=== PATIENT | male | born 1965 | race Caucasian/White ===

== ENCOUNTER 2016-10-24 12:51 | Inpatient (IN) | payer OTHER ==
[2016-10-24] MEDS ORDERED: OXYCODONE/APAP 5/325MG COMBO TABLET PO ONE (14:02)
[2016-10-24] MEDS ORDERED: OXYCODONE/APAP 5/325MG COMBO TABLET ONE (14:08)
--- NOTE | 2016-10-24 14:12 | PDOC ---
[id number] BACK/ RIB PAIN Time Seen by Provider: 10/24/16 13:23 History Source: Patient Exam Limitations: No Limitations - History of Present Illness Initial Comments: 10/24/16 14:09 51 yr male states he was walking up the steps this am and fell injuring left rib area left knee. Pt denies LOC no head trauma no headache. 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 Pt has pain to the left rib area under armpit and pain to his mid back left side. no shortness of breath no chest pain. 10/24/16 16:18 10/24/16 16:24 Past History - Past Medical History Allergies/Adverse Reactions: Allergies Allergy/AdvReac Type Severity Reaction Status Date / Time No Known Allergies Allergy Verified 10/24/16 13:00 Home Medications: Ambulatory Orders NK [No Known Home Medication] 06/21/15 HTN: Yes Other medical history: PSORIASIS - Family Disease History Comment:: 10/24/16 14:10 none relevant - Psycho/Social/Smoking Cessation Hx Anxiety: No Suicidal Ideation: No Smoking History: Never smoked Hx Alcohol Use: Yes (SOCIAL) Drug/Substance Use Hx: No Substance Use Type: None Trauma Specific PMHX - Complaint Specific PMHX Arthritis: No Back Injury: No Neck Injury: No Hx Sacro Iliac Joint Dysfunction: No Review of Systems - Review of Systems Able to Perform ROS?: Yes Is the patient limited Czech proficient: No Constitutional: No: Symptoms Reported HEENTM: No: Symptoms Reported Respiratory: No: Symptoms reported Cardiac (ROS): No: Symptoms Reported ABD/GI: No: Symptoms Reported : No: Symptoms Reported Musculoskeletal: Yes: See HPI Integumentary: No: Symptoms Reported Neurological: No: Symptoms reported *Physical Exam - Vital Signs Last Vital Signs Temp Pulse Resp BP Pulse Ox 98.2 F 125 H 20 170/103 97 10/24/16 12:55 10/24/16 12:55 10/24/16 12:55 10/24/16 12:55 10/24/16 12:55 - Physical Exam General Appearance: Yes: Nourished, Appropriately Dressed HEENT: positive: EOMI, DEVONTE Neck: negative: Tender Respiratory/Chest: positive: Chest Tender (left rib area under axila TTP), Lungs Clear, Normal Breath Sounds Cardiovascular: positive: Regular Rhythm, Regular Rate Gastrointestinal/Abdominal: positive: Normal Bowel Sounds, Soft Lymphatic: negative: Adenopathy Musculoskeletal: positive: Normal Inspection Extremity: positive: Normal Capillary Refill, Normal Inspection, Other ( bruising noted left upper arm, left knee no bony tenderness ) ED Treatment Course - LABORATORY CBC & Chemistry Diagram: 10/24/16 15:00 10/24/16 15:00 - RADIOLOGY Radiology Studies Ordered: Category Date Time Status CHEST PA & LAT [RAD] Stat Radiology 10/24/16 14:02 Ordered Medical Decision Making - Medical Decision Making 10/24/16 14:12 cc: slip and fall on the steps injured left rib area no head trauma will xray to r/o fracture percocet for pain 10/24/16 14:20 10/24/16 14:35 xray findings discussed with , will move pt to main ER for further care. signed out to Krystle MAGANA. charge nurse Tiarra Manuel aware of pt to come to main ER. 10/24/16 14:37 *DC/Admit/Observation/Transfer Diagnosis at time of Disposition: Pleural effusion Ribs, multiple fractures Qualifiers: Encounter type: initial encounter Fracture type: closed Laterality: left Qualified Code(s): S22.42XA - Multiple fractures of ribs, left side, initial encounter for closed fracture - Referrals Referrals: Zack Call MD [Primary Care Provider] -
[2016-10-24 15:22] LABS: MCH 33.1 pg (25.7-33.7); MCHC 35.1 g/dl (32.0-35.9); MEAN CELL VOLUME 94.1 fl (80-96); MEAN PLT VOLUME 9.6 fl (7.5-11.1); PLATELET COUNT 127 K/MM3 (134-434); RDW 13.8 % (11.9-15.9); WHITE BLOOD COUNT 11.5 K/mm3 (4.0-10.0)
[2016-10-24 15:33] LABS: ALK PHOS 170 U/L (45-117); ANION GAP 12 (8-16); BILIRUBIN,TOTAL 1.9 mg/dL (0.2-1.0); CALCIUM 9.1 mg/dL (8.5-10.1); CO2 24 mmol/L (21-32); CREATININE 0.8 mg/dL (0.7-1.3); SGOT/AST 92 U/L (15-37); SGPT/ALT 99 U/L (12-78); TOT PROT 8.2 g/dl (6.4-8.2)
[2016-10-24 15:39] LABS: GLUCOSE,RANDOM 373 mg/dL (74-106)
--- NOTE | 2016-10-24 16:09 | PDOC ---
History of Present Illness - General Chief Complaint: Pain Stated Complaint: BACK/ RIB PAIN Time Seen by Provider: 10/24/16 13:23 History Source: Patient Exam Limitations: No Limitations - History of Present Illness Initial Comments: CHIEF COMPLAINT: 51 y/o afebrile male with no significant PMH c/o left sided rib pain and SOB since fall today. HISTORY OF PRESENT ILLNESS: The patient fell down his steps this morning and landed with his left side/ribs on the railing. He states he took aleve for pain with little relief. He states it hurts if he takes a deep breath. He was initially assessed in [facility] and was found to have rib fractures of 6th/7th ribs with atelectasis of left lower chest with pleural effusion. He was sent to the [facility] for further work up to r/o splenic lac. Vital signs on arrival are notable for pulse of 125. REVIEW OF SYSTEMS: GENERAL/CONSTITUTIONAL: No fever/chills. No weakness. No weight change. HEAD, EYES, EARS, NOSE AND THROAT: No change in vision. No ear pain or discharge. No sore throat. CARDIOVASCULAR: +pain with deep inspiration. +left chest wall pain. RESPIRATORY: No cough, wheezing, or hemoptysis. GASTROINTESTINAL: No abd pain, nausea, vomiting, diarrhea. +left side/flank pain. GENITOURINARY: No dysuria, frequency, or change in urination. MUSCULOSKELETAL: No joint or muscle swelling or pain. No neck or back pain. SKIN: No rash or easy bruising. NEUROLOGIC: No headache, vertigo, loss of consciousness, or loss of sensation. PHYSICAL EXAM: GENERAL: The patient is awake, alert, and fully oriented, in moderate discomfort. HEAD: Normal with no signs of trauma. ENT: Pupils equal, round and reactive to light, extraocular movements intact, sclera anicteric, conjunctiva clear. Neck supple. LUNGS: Clear to auscultation bilaterally. Normal excursion. No respiratory distress or use of accessory muscles. CV: RRR, S1/S2, no MRG. Cap refill < 2 sec. ABDOMEN: Soft, non-distended, non-tender even to deep palpation, no hepatomegaly or splenomegaly, no masses. EXTREMITIES: Normal range of motion, no edema. NEUROLOGICAL: Normal speech, normal gait. CN II-XII grossly intact. SKIN: scattered ecchymosis and abrasions to left midaxillary chest and left flank. TTP of left ribs Past History - Past Medical History Allergies/Adverse Reactions: Allergies Allergy/AdvReac Type Severity Reaction Status Date / Time No Known Allergies Allergy Verified 10/24/16 13:00 Home Medications: Ambulatory Orders Metoprolol Succinate [Toprol Xl -] 25 mg PO BID 10/24/16 HTN: Yes Other medical history: PSORIASIS - Psycho/Social/Smoking Cessation Hx Anxiety: No Suicidal Ideation: No Smoking History: Never smoked Hx Alcohol Use: Yes (SOCIAL) Drug/Substance Use Hx: No Substance Use Type: None Trauma Specific PMHX - Complaint Specific PMHX Arthritis: No Back Injury: No Neck Injury: No Hx Sacro Iliac Joint Dysfunction: No Review of Systems - Review of Systems Is the patient limited Montenegrin proficient: No *Physical Exam - Vital Signs Last Vital Signs Temp Pulse Resp BP Pulse Ox 98.2 F 125 H 20 170/103 97 10/24/16 12:55 10/24/16 12:55 10/24/16 12:55 10/24/16 12:55 10/24/16 12:55 ED Treatment Course - LABORATORY CBC & Chemistry Diagram: 10/25/16 11:20 10/25/16 11:20 - ADDITIONAL ORDERS Additional order review: Laboratory Results 10/24/16 15:00 Sodium 135 L Potassium 3.8 Chloride 99 Carbon Dioxide 24 Anion Gap 12 BUN 15 Creatinine 0.8 Creat Clearance w eGFR > 60 Random Glucose 373 H* Calcium 9.1 Total Bilirubin 1.9 H AST 92 H ALT 99 H Alkaline Phosphatase 170 H Total Protein 8.2 Albumin 4.0 10/24/16 15:00 RBC 5.23 MCV 94.1 MCHC 35.1 RDW 13.8 MPV 9.6 - Medications Given in the ED: ED Medications Discontinued Medications Generic Name Dose Route Start Last Admin Trade Name Freq PRN Reason Stop Dose Admin Oxycodone/Acetaminophen 1 combo 10/24/16 14:02 10/24/16 14:10 Percocet 5/325 - PO 10/24/16 14:03 1 combo ONCE ONE Administration Medical Decision Making - Medical Decision Making A/P: 51 y/o male with trauma to left chest today. 6th and 7th rib fractures. Labs ok. Will send for CT scan of chest and abd/pelvis to r/o splenic lac. I am signing this patient out to my colleague: JEANA Millard In brief, this patient is being seen in the ED for a chief complaint of: left sided rib pain and SOB I have completed the initial assessment interview note and have ordered: labs, percocet, CTA chest, abd/pelvis CT I have reviewed the following results: labs Pending results are: CT scans Please call the PCP: Zack Call Plan for disposition is as follows: Pending *DC/Admit/Observation/Transfer Diagnosis at time of Disposition: Pleural effusion Ribs, multiple fractures Qualifiers: Encounter type: initial encounter Fracture type: closed Laterality: left Qualified Code(s): S22.42XA - Multiple fractures of ribs, left side, initial encounter for closed fracture - Referrals - Patient Instructions - Post Discharge Activity
--- NOTE | 2016-10-24 19:24 | PDOC ---
*Physical Exam - Vital Signs Last Vital Signs Temp Pulse Resp BP Pulse Ox 98.2 F 125 H 20 170/103 97 10/24/16 12:55 10/24/16 12:55 10/24/16 12:55 10/24/16 12:55 10/24/16 12:55 - Physical Exam Comments: 10/24/16 19:23 Sign-out received from outgoing ER provider Edna. Pt interviewed and examined. Ancillary studies reviewed. Awaiting CT results to r/o splenic lac. 10/24/16 21:06 CT results: Fractures to ribs 3-8 of L side along posterolateral and lateral borders. Associated mild subleural thickening in those regions consistent with edema. A small amount of left-sided pleural fluid is noted. Discussed case with ER attending Jesus, will admit for multiple rib fractures. Discussed case with admitting MD Frank, who accepts patient to inpatient services. Patient currently c/o pain. -1mg Dilaudid IVPB ED Treatment Course - LABORATORY CBC & Chemistry Diagram: 10/24/16 15:00 10/24/16 15:00 - ADDITIONAL ORDERS Additional order review: Laboratory Results 10/24/16 15:00 Sodium 135 L Potassium 3.8 Chloride 99 Carbon Dioxide 24 Anion Gap 12 BUN 15 Creatinine 0.8 Creat Clearance w eGFR > 60 Random Glucose 373 H* Calcium 9.1 Total Bilirubin 1.9 H AST 92 H ALT 99 H Alkaline Phosphatase 170 H Total Protein 8.2 Albumin 4.0 10/24/16 15:00 RBC 5.23 MCV 94.1 MCHC 35.1 RDW 13.8 MPV 9.6 - Medications Given in the ED: ED Medications Discontinued Medications Generic Name Dose Route Start Last Admin Trade Name Freq PRN Reason Stop Dose Admin Oxycodone/Acetaminophen 1 combo 10/24/16 14:02 10/24/16 14:10 Percocet 5/325 - PO 10/24/16 14:03 1 combo ONCE ONE Administration *DC/Admit/Observation/Transfer Diagnosis at time of Disposition: Pleural effusion Ribs, multiple fractures Qualifiers: Encounter type: initial encounter Fracture type: closed Laterality: left Qualified Code(s): S22.42XA - Multiple fractures of ribs, left side, initial encounter for closed fracture - Discharge Dispostion Admit: Yes - Referrals Referrals: aZck Call MD [Primary Care Provider] - - Patient Instructions - Post Discharge Activity
[2016-10-24] MEDS ORDERED: HYDROmorphone HCL CARPU-JECT 1 MG/1 ML DISP.SYRIN IVPUSH ONE (21:10)
[2016-10-24] MEDS ORDERED: HYDROmorphone HCL CARPU-JECT 1 MG/1 ML DISP.SYRIN ONE (21:12)
[2016-10-24] MEDS ORDERED: METOPROLOL SUCCINATE 50 MG TAB.SR.24H (FP) ONE (22:29)
[2016-10-24] MEDS ORDERED: METOPROLOL SUCCINATE 25 MG TAB.SR.24H (FP) PO ONE (22:30)
[2016-10-25] MEDS ORDERED: morphine CARPU-JECT 4 MG/1 ML DISP.SYRIN ONE (02:40)
[2016-10-25] MEDS: morphine CARPU-JECT 4 MG/1 ML DISP.SYRIN IM PRN ×2 (02:47→10:23)
[2016-10-25 03:52] VITALS: BMI 23.9
[2016-10-25] MEDS: METOPROLOL SUCCINATE 25 MG TAB.SR.24H (FP) PO SCH ×3 (08:31→21:00)
--- NOTE | 2016-10-25 11:27 | PN ---
Progress Note (short form) - Note Progress Note: To whom it may concern, This is to inform you that Mr. Juju Patino 61 [address] [facility] on 10/24/16 with a significant rib injury. He is still in the hospital today 10/25/16 and his hospital duration is unknown at this time. Thank you, Moshe Potter MD
[2016-10-25 11:34] LABS: BASOPHIL 0.5 % (0-2.0); EOSINOPHIL 0.9 % (0-4.5); MCH 32.6 pg (25.7-33.7); MCHC 34.3 g/dl (32.0-35.9); MEAN CELL VOLUME 94.8 fl (80-96); MEAN PLT VOLUME 9.1 fl (7.5-11.1); NEUTROPHILS 76.6 % (42.8-82.8); PLATELET COUNT 109 K/MM3 (134-434); RDW 13.7 % (11.9-15.9); WHITE BLOOD COUNT 8.8 K/mm3 (4.0-10.0)
[2016-10-25 11:56] LABS: ALBUMIN 3.8 g/dl (3.4-5.0); ALK PHOS 164 U/L (45-117); ANION GAP 11 (8-16); BILIRUBIN,TOTAL 2.5 mg/dL (0.2-1.0); CALCIUM 9.4 mg/dL (8.5-10.1); CO2 27 mmol/L (21-32); CREATININE 0.8 mg/dL (0.7-1.3); GLUCOSE,RANDOM 291 mg/dL (74-106); SGOT/AST 56 U/L (15-37); SGPT/ALT 80 U/L (12-78); TOT PROT 8.2 g/dl (6.4-8.2)
--- NOTE | 2016-10-25 12:41 | CON.CARD ---
Consult Consult Specialty:: Cardiology Referred by:: Dr. Frank Reason for Consultation:: HTN - History of Present Illness Chief Complaint: Fall with rib pain History of Present Illness: 51 year old man with a history of HTN, HLD, DMII, admitted with a mechanical fall and rib fractures. asked to evaluate for HTN. Pt seen and examined today in [facility]. states he is feeling better. still has significant rib pain. no syncope , near syncope, dizziness, lightheadedness, chest pain, sob, palpitations, pnd, orthopnea, or LE edema. - History Source History Provided By: Patient, Medical Record Limitations to Obtaining History: No Limitations - Past Medical History Cardio/Vascular: Yes: HTN, Hyperlipdemia Endocrine: Yes: Diabetes Mellitus - Alcohol/Substance Use Hx Alcohol Use: Yes (SOCIAL) - Smoking History Smoking history: Never smoked - Social History ADL: Independent History of Recent Travel: No Home Medications - Allergies Allergies/Adverse Reactions: Allergies Allergy/AdvReac Type Severity Reaction Status Date / Time No Known Allergies Allergy Verified 10/24/16 13:00 - Home Medications Home Medications: Ambulatory Orders Metoprolol Succinate [Toprol Xl -] 25 mg PO BID 10/24/16 Family Disease History - Family Disease History Family History: Denies Review of Systems - Review of Systems Constitutional: denies: No Symptoms, Chills, Diaphoresis, Fever, Lethargy, Loss of Appetite, Malaise, Night Sweats, Unintentional Wgt. Loss, Weakness, Other Eyes: denies: No Symptoms, Blind Spots, Blurred Vision, Double Vision, Eye Pain , Floaters, Photophobia, Recent Change in Vision, Other HENT: denies: No Symptoms, Difficult Swallowing, Ear Discharge, Ear Pain, Epistaxis, Gingival Bleeding, Hearing Loss, Mouth Swelling, Nasal Congestion, Ocular Prosthesis, Throat Pain, Toothache, Ringing in Ears, Other Neck: denies: No Symptoms, Decreased ROM, Lumps, Pain on Movement, Stiffness, Swollen Glands, Tenderness, Other Cardiovascular: denies: No Symptoms, Chest Pain, Edema, Palpitations, Shortness of Breath, Other Respiratory: denies: No Symptoms, Cough, Exercise Intolerance, Hemoptysis, Orthopnea, PND, Snoring, SOB, SOB on Exertion, Wheezing, Other Gastrointestinal: denies: No Symptoms, Abdominal Pain, Bloating, Constipation, Diarrhea, Dysphagia, Indigestion, Melena, Nausea, Rectal Bleeding, Vomiting, Vomiting Blood, Other Genitourinary: denies: No Symptoms, Burning, Discharge, Dysuria, Flank Pain, Frequency, Hematuria, Incontinence, Lesions, Menses, Pain, Testicular Mass, Testicular Pain, Testicular Swelling, Urgency, Vaginal Bleeding, Other Breasts: denies: No Symptoms Reported, See HPI, Breast Implants, Discharge from Nipple, Lumps, Pain, Skin Changes, Other Musculoskeletal: reports: Other (rib pain). denies: No Symptoms, Back Pain, Crepitus, Decreased ROM, Extremity Pain, Joint Pain, Joint Swelling, Muscle Pain , Muscle Cramps, Muscle Weakness Integumentary: denies: No Symptoms, Blister, Bruising, Change in Color, Eczema, Erythema, Incision, Lesions, Lump, Pallor, Pruritis, Rash, Wound, Other Neurological: denies: No Symptoms, Change in LOC, Change in Speech, Confusion, Dizziness, Headache, Incoordination, Numbness, Parasthesia, Pre-Existing Deficit , Seizure, Syncope, Tremors, Unsteady Gait, Weakness, Other Endocrine: denies: No Symptoms, Excessive Sweating, Flushing, Increased Hunger, Increased Thirst, Intolerance to Cold, Intolerance to Heat, Unexplained Weight Gain, Unexplained Weight Loss, Other Hematology/Lymphatic: denies: No Symptoms, Easily Bruised, Excessive Bleeding, Swollen Glands, Other Psychiatric: denies: No Symptoms, Altered Sleep Pattern, Anxiety, Depression, Hallucinations, Panic, Paranoia, Suicidal, Other - Risk Factors Known Risk Factors: Yes: Diabetes Mellitus, Hypercholesterolemia, Hypertension Vital Signs: Vital Signs Temperature 97.9 F 10/25/16 08:33 Pulse Rate 75 10/25/16 08:33 Respiratory Rate 20 10/25/16 08:33 Blood Pressure 176/97 10/25/16 08:33 O2 Sat by Pulse Oximetry (%) 96 10/25/16 08:00 Constitutional: Yes: Well Nourished, No Distress, Calm Eyes: Yes: WNL, Conjunctiva Clear, EOM Intact, PERRL HENT: Yes: WNL, Atraumatic, Normocephalic Neck: Yes: WNL, Supple, Trachea Midline Respiratory: Yes: WNL, Regular, CTA Bilaterally. No: Rales, Rhonchi, Wheezes Gastrointestinal: Yes: WNL, Normal Bowel Sounds, Soft. No: Distention, Tenderness Renal/: Yes: WNL Cardiovascular: Yes: WNL, Regular Rate and Rhythm. No: Bradycardia, Tachycardia , Pulse Irregular, Gallop, Rub, Varicosities JVD: No Carotid Bruit: No PMI: Non-Displaced Heart Sounds: Yes: S1, S2. No: Split S2, S3, S4, Clicks, Gallop, Rub, Bruit Murmur: No: Systolic Murmur, Diastolic Murmur Musculoskeletal: Yes: Back Pain, Other (rib pain). No: WNL, Joint Stiffness, Joint Swelling, Muscle Pain, Muscle Weakness Extremities: Yes: WNL Edema: No Peripheral Pulses WNL: Yes Peripheral Pulses: 2+ Left Doralis Pedis, 2+ Right Dorsalis Pedis Integumentary: Yes: WNL Neurological: Yes: WNL, Alert, Oriented, Cran Nerves II-XII Intact ...Motor Strength: WNL Psychiatric: Yes: WNL, Alert, Oriented - Other Data Labs, Other Data: CBC, BMP 10/25/16 11:20 10/25/16 11:20 EKG-NSR 92bpm, poor R progression, possible inferior infarct, nonspecific st abnl Imaging - Results Chest X-ray: Report Reviewed, Image Reviewed EKG: Report Reviewed, Image Reviewed Other: Report Reviewed, Image Reviewed Problem List - Problems (1) Ribs, multiple fractures Code(s): S22.49XA - MULTIPLE FRACTURES OF RIBS, UNSP SIDE, INIT FOR CLOS FX Qualifiers: Encounter type: initial encounter Fracture type: closed Laterality : left Qualified Code(s): S22.42XA - Multiple fractures of ribs, left side, initial encounter for closed fracture (2) HTN (hypertension) Code(s): I10 - ESSENTIAL (PRIMARY) HYPERTENSION Assessment/Plan 51 year old man with a history of HTN, HLD, DMII, admitted with a mechanical fall and rib fractures. HTN-above goal, likely exacerbated by pain -clarify home medical regimen, as per Dr. Robins last note 05/2016 in office EMR he is suppossed to be taking Losartan 100mg daily and Toprol XL 25mg daily -start Losartan 50mg daily for now until clarify if he is taking 100mg daily at home then resume that dose -pain control -outpatient follow up, does not need to remain inpatient for HTN control Liver cirrhosis with varices on CT -as per PMD office notes this was known in the past and an abdominal MRI was ordered -f/up with PMD on discharge No additional inpatient cardiac work up needed at this point
[2016-10-25] MEDS ORDERED: LOSARTAN POTASSIUM 50 MG TABLET (FP) PO SCH (13:00)
--- NOTE | 2016-10-25 13:33 | HP ---
Admitting History and Physical - Past Medical History Cardiovascular: Yes: HTN, Hyperlipdemia Endocrine: Yes: Diabetes Mellitus - Smoking History Smoking history: Never smoked - Alcohol/Substance Use Hx Alcohol Use: Yes (SOCIAL) - Social History ADL: Independent History of Recent Travel: No Home Medications - Allergies Allergies/Adverse Reactions: Allergies Allergy/AdvReac Type Severity Reaction Status Date / Time No Known Allergies Allergy Verified 10/24/16 13:00 - Home Medications Home Medications: Ambulatory Orders Metoprolol Succinate [Toprol XL -] 25 mg PO BID 10/24/16 Losartan Potassium [Cozaar -] 50 mg PO DAILY #0 tablet 10/26/16 Tramadol HCl [Ultram -] 50 mg PO Q8H PRN #30 tablet MDD 3 10/26/16 Physical Examination Vital Signs: Vital Signs Temperature 97.9 F 10/25/16 08:33 Pulse Rate 75 10/25/16 08:33 Respiratory Rate 20 10/25/16 08:33 Blood Pressure 176/97 10/25/16 08:33 O2 Sat by Pulse Oximetry (%) 96 10/25/16 08:00 Labs: CBC, BMP 10/25/16 11:20 10/25/16 11:20 Problem List - Problems (1) HTN (hypertension) Code(s): I10 - ESSENTIAL (PRIMARY) HYPERTENSION (2) Ribs, multiple fractures Code(s): S22.49XA - MULTIPLE FRACTURES OF RIBS, UNSP SIDE, INIT FOR CLOS FX Qualifiers: Encounter type: initial encounter Fracture type: closed Laterality : left Qualified Code(s): S22.42XA - Multiple fractures of ribs, left side, initial encounter for closed fracture
[2016-10-25] MEDS ORDERED: LOSARTAN POTASSIUM 50 MG TABLET (FP) PO ONE (17:19)
[2016-10-25] MEDS ORDERED: HYDROCHLOROTHIAZIDE 25 MG TABLET (FP) PO ONE (17:22)
[2016-10-25] MEDS: morphine CARPU-JECT 4 MG/1 ML DISP.SYRIN IVPUSH PRN (18:17)
[2016-10-25] MEDS ORDERED: amLODIPine BESYLATE 2.5 MG TABLET (FP) PO ONE (21:00)
[2016-10-26] MEDS: morphine CARPU-JECT 4 MG/1 ML DISP.SYRIN IVPUSH PRN ×2 (01:47→08:25)
--- NOTE | 2016-10-26 09:04 | PN ---
Progress Note, Physician History of Present Illness: seen and examined today in [facility]. no overnight events. no new complaints. - Current Medication List Current Medications: Active Medications HCTZ/Losartan Potassium (Hyzaar -) 2 tab PO DAILY [facility] Metoprolol Succinate (Toprol Xl -) 25 mg PO BID BE Last Admin: 10/25/16 21:00 Dose: 25 mg Morphine Sulfate (Morphine Injection -) 4 mg IVPUSH Q6H PRN PRN Reason: PAIN Last Admin: 10/26/16 08:25 Dose: 4 mg - Objective Vital Signs: Vital Signs Temperature 98.0 F 10/26/16 05:30 Pulse Rate 72 10/26/16 05:30 Respiratory Rate 20 10/25/16 17:26 Blood Pressure 140/97 10/26/16 05:30 O2 Sat by Pulse Oximetry (%) 96 10/25/16 08:00 Constitutional: Yes: Well Nourished, No Distress, Calm Eyes: Yes: WNL, Conjunctiva Clear, EOM Intact, PERRL HENT: Yes: WNL, Atraumatic, Normocephalic Neck: Yes: WNL, Supple, Trachea Midline Cardiovascular: Yes: WNL, Regular Rate and Rhythm, S1, S2. No: Bradycardia, Tachycardia, Pulse Irregular, Bruit, JVD, Gallop, Murmur, Rub, S3, S4, Varicosities Respiratory: Yes: WNL, Regular, CTA Bilaterally. No: Rales, Rhonchi, Wheezes Gastrointestinal: Yes: WNL, Normal Bowel Sounds, Soft. No: Distention, Tenderness Musculoskeletal: Yes: WNL Extremities: Yes: WNL Edema: No Peripheral Pulses WNL: Yes Peripheral Pulses: Left Doralis Pedis: 2+, Right Dorsalis Pedis: 2+ Integumentary: Yes: WNL Neurological: Yes: WNL, Alert, Oriented, Cran Nerves II-XII Intact ...Motor Strength: WNL Psychiatric: Yes: WNL, Alert, Oriented Labs: CBC, BMP 10/25/16 11:20 10/25/16 11:20 - ....Imaging Chest X-ray: Report Reviewed, Image Reviewed EKG: Report Reviewed, Image Reviewed Other: Report Reviewed, Image Reviewed Problem List - Problems (1) Ribs, multiple fractures Code(s): S22.49XA - MULTIPLE FRACTURES OF RIBS, UNSP SIDE, INIT FOR CLOS FX Qualifiers: Encounter type: initial encounter Fracture type: closed Laterality : left Qualified Code(s): S22.42XA - Multiple fractures of ribs, left side, initial encounter for closed fracture (2) HTN (hypertension) Code(s): I10 - ESSENTIAL (PRIMARY) HYPERTENSION Assessment/Plan 51 year old man with a history of HTN, HLD, DMII, admitted with a mechanical fall and rib fractures. HTN-above goal, likely exacerbated by pain -changed losartan to Losartan/HCTZ 100/25mg daily -cont Toprol XL 25mg bid -if needed for further HTN control will plan to add Nifedipine XL starting at 30mg daily -pain control -outpatient follow up, does not need to remain inpatient to achieve goal BP control -pt will come to office this saturday for further evaluation and tx of HTN Liver cirrhosis with varices on CT -as per PMD office notes this was known in the past and an abdominal MRI was ordered -f/up with PMD on discharge No additional inpatient cardiac work up needed at this point
[2016-10-26] MEDS: METOPROLOL SUCCINATE 25 MG TAB.SR.24H (FP) PO SCH (09:08)
[2016-10-26] MEDS ORDERED: LOSARTAN 50MG/HCTZ 12.5MG 1 TAB (FP) PO SCH (10:00)
[2016-10-26] MEDS ORDERED: traMADol HCL 50 MG TABLET PO PRN (12:01)
[2016-10-26 14:48] VITALS: BP 136/93; PULSE 81; TEMP 97.9
--- NOTE | 2016-10-28 22:37 | EKG ---
Test Reason : Blood Pressure : / mmHG Vent. Rate : 092 BPM Atrial Rate : 092 BPM P-R Int : 154 ms QRS Dur : 104 ms QT Int : 390 ms P-R-T Axes : 034 -20 024 degrees QTc Int : 482 ms NORMAL SINUS RHYTHM POSSIBLE LEFT ATRIAL ENLARGEMENT INFERIOR INFARCT , AGE UNDETERMINED POSSIBLE ANTERIOR INFARCT , AGE UNDETERMINED ABNORMAL ECG NO PREVIOUS ECGS AVAILABLE Confirmed by SYLVIA MINOR MD ([id number]) on 10/28/2016 10:37:11 PM Referred By: Confirmed By:SYLVIA MINOR MD
== END 2016-10-26 18:25 | disposition home or self-care (01) | DRG 84 ==
LOC: JER 12:51 → JERFT 12:51 → JERBED 22:01 → J6S 10-25 03:25
PROVIDERS: ADMIT Internal Medicine; ATTEND Internal Medicine
DX: S22.42XA Multiple fractures of ribs, left side, initial encounter for closed fracture (principal); W19.XXXA Unspecified fall, initial encounter; Y93.9 Activity, unspecified; Y92.89 Other specified places as the place of occurrence of the external cause; Y99.9 Unspecified external cause status; I10 Essential (primary) hypertension; E78.5 Hyperlipidemia, unspecified; E11.9 Type 2 diabetes mellitus without complications
CPT/HCPCS: 36415; 71020-TC; 71260-TC; 74177-TC; 80053; 83036; 85025; 85027; 93005; 93010; 93306-TC; 94010; 97116-GP; 97161-GP; 99284-25

== ENCOUNTER 2017-09-16 11:59 | Emergency (ER) | payer OTHER ==
[2017-09-16 12:29] VITALS: TEMP 98.1; BMI 24.7
[2017-09-16] MEDS ORDERED: ACETAMINOPHEN 1000 MG/100 ML VIAL (NON FORMULARY) IVPB ONE (13:28)
[2017-09-16 13:46] LABS: BASO % 0.4 % (0-2.0); EOS % 2.7 % (0-4.5); HEMOGLOBIN 16.6 GM/dL (11.7-16.9); LYMPH % 21.2 % (8-40); MCH 32.9 pg (25.7-33.7); MCHC 34.6 g/dl (32.0-35.9); MONO % 13.8 % (3.8-10.2); NEUT % 61.9 % (42.8-82.8); PLATELET COUNT 129 K/MM3 (134-434); RBC 5.05 M/mm3 (4.00-5.60); RDW 13.2 % (11.9-15.9); URINE APPEARANCE CLEAR; URINE BILIRUBIN NEGATIVE (NEGATIVE); URINE BLOOD 1+ (NEGATIVE); URINE COLOR LTYELLOW; URINE GLUCOSE (UA) 3+ (NEGATIVE); URINE KETONE NEGATIVE (NEGATIVE); URINE LEUK ESTERASE NEGATIVE (NEGATIVE); URINE NITRITE NEGATIVE (NEGATIVE); URINE PROTEIN NEGATIVE (NEGATIVE); URINE UROBILINOGEN 4.0 E.U/dl mg/dL (0.2-1.0); WHITE BLOOD COUNT 4.8 K/mm3 (4.0-10.0)
[2017-09-16 13:51] LABS: EPI CELLS RARE /HPF (FEW)
--- NOTE | 2017-09-16 13:52 | PDOC ---
History of Present Illness - General Chief Complaint: Pain, Acute Stated Complaint: LT SIDE PAIN Time Seen by Provider: 09/16/17 12:45 - History of Present Illness Initial Comments: 09/16/17 13:47 The patient is a 52 year old male with a history of HTN, DM who presents for evaluation of LLQ abdominal pain and left flank pain. The patient reports a 3 week history of crampy LLQ abdominal pain with radiation into his left flank with intermittent sharp "pinching" sensations. He states that he saw his primary care provider 2 weeks ago and was told that he had blood in his urine, but notes that he did not receive any treatment. He states that over the past 3 days, he notes acute worsening in his pain with continued pain despite ibuprofen use prompting his presentation to the ED today. He denies fevers, chills, SOB, chest pain, nausea, vomiting, burning or pain on urination or changes with bowel movements. Past History - Past Medical History Allergies/Adverse Reactions: Allergies Allergy/AdvReac Type Severity Reaction Status Date / Time No Known Allergies Allergy Verified 09/16/17 12:30 Home Medications: Ambulatory Orders Metoprolol Succinate [Toprol XL -] 25 mg PO BID 10/24/16 Losartan Potassium [Cozaar -] 50 mg PO DAILY #0 tablet 10/26/16 Metformin HCl [Glucophage] 1,000 mg PO BID 09/16/17 Valacyclovir HCl [Valtrex -] 1,000 mg PO TID #21 tablet 09/16/17 COPD: No Diabetes: Yes HTN: Yes Other medical history: PSORIASIS - Suicide/Smoking/Psychosocial Hx Smoking History: Never smoked Hx Alcohol Use: Yes Drug/Substance Use Hx: No Substance Use Type: None Review of Systems - Review of Systems Comments:: 09/16/17 13:51 Constitutional: No fevers, chills, fatigue, malaise HEENT: No Rhinorrhea, nasal congestion, visual changes Cardiovascular: No chest pain, syncope, palpitations, lightheadedness Respiratory: No Cough, SOB, Hemoptysis, Gastrointestinal: LLQ abdominal pain. No Nausea, Vomiting, Constipation, Diarrhea, Melena Genitourinary: Hematuria, Flank pain. No Dysuria, Frequency, Urgency, Hesitancy , Musculoskeletal: No Myalgia, arthralgia Skin: No rashes, itching, bruising, pallor Neurologic: No Headache, Dizziness, Numbness, Weakness, or Tingling Psychiatric: No Hallucinations. No SI or HI *Physical Exam - Vital Signs Last Vital Signs Temp Pulse Resp BP Pulse Ox 98.1 F 74 18 141/89 96 09/16/17 12:27 09/16/17 12:27 09/16/17 12:27 09/16/17 12:27 09/16/17 12:27 - Physical Exam Comments: 09/16/17 13:52 General Appearance: Nourished. No Apparent Distress HEENT: EOMI, DEVONTE. No Pharyngeal Erythema, Tonsillar Exudate, Tonsillar Erythema Neck: No Cervical Lymphadenopathy Respiratory/Chest: Lungs Clear, Normal Breath Sounds. No Crackles, Rales, Rhonchi, Wheezing Cardiovascular: Regular Rhythm, Regular Rate. No Murmur, Gallops, Rubs Gastrointestinal/Abdominal: Normal Bowel Sounds, Soft. No Guarding, Rebound, Tenderness Musculoskeletal: No CVA Tenderness Extremity: Normal Capillary Refill Integumentary: Normal Color, Dry, Warm Neurologic: Fully Oriented, Alert, Normal Mood/Affect, Normal Response, ED Treatment Course - LABORATORY CBC & Chemistry Diagram: 09/16/17 13:35 09/16/17 13:35 - RADIOLOGY Radiology Studies Ordered: Category Date Time Status SPIRAL- RENAL-STONE CT [CT] Stat CT Scan 09/16/17 13:26 Ordered Medical Decision Making - Medical Decision Making 09/16/17 13:52 The patient is a 52 year old male with a history of HTN, DM who presents for evaluation of LLQ abdominal pain and left flank pain. Differential includes but is not limited to: Nephrolethiasis, UTI, musculoskeletal, infectious, metabolic derangement. Given the patient's reported history of blood in his urine as well as flank pain, it is possible his symptoms are due to a kidney stone or UTI. We will obtain a cbc, cmp, UA, urine culture, and renal CT to evaluate further. We will continue to monitor and reassess. 09/16/17 17:03 CBC, cmp, are unremarkable. UA demonstrates 1+ blood. Renal CT demonstrates bilateral non-obstructing renal stones as read by our radiologist. The patient reports improvement in his symptoms. Given that the patient symptoms are dermatomal in nature, it is possible his symptoms are due to early shingles. We will treat the patient with valcyclovir and are comfortable discharging the patient home with primary care provider follow up. We discussed strict return precautions with the patient. The patient voiced understanding and is agreeable with the plan. *DC/Admit/Observation/Transfer Diagnosis at time of Disposition: Shingles Qualifiers: Herpes zoster complications: unspecified herpes zoster complication Qualified Code(s): B02.8 - Zoster with other complications - Discharge Dispostion Disposition: HOME Condition at time of disposition: Good Admit: No - Prescriptions Prescriptions: Valacyclovir HCl [Valtrex -] 1,000 mg PO TID #21 tablet - Referrals Referrals: Zack Call MD [Primary Care Provider] - - Patient Instructions Printed Discharge Instructions: DI for Shingles Additional Instructions: Please return to the ER if you experience any concerning or worsening symptoms including worsening abdominal pain, fevers, vomiting. You were seen in the ER for flank and abdominal pain. It is possible your symptoms are due to early shingles. We have sent a prescription for Valcyclovir to your pharmacy that you should take three times a day for 7 days. Please call to schedule a follow up appointment with your primary care provider within 2-3 days to be re-evaluated. - Post Discharge Activity
--- NOTE | 2017-09-16 13:55 | PDOC ---
Attending Attestation - Resident Resident Name: Nehemiah Singh - ED Attending Attestation I have performed the following: I have examined & evaluated the patient, The case was reviewed & discussed with the resident, I agree w/resident's findings & plan, Exceptions are as noted - HPI HPI: 09/16/17 13:52 52 M with h/o HTN, DM presenting to ED with 3 weeks of intermittent L flank pain. Pt states that the pain radiates from his L flank towards his groin. He denies F/C. Endorses nausea without vomiting. Denies diarrhea/constipation. Pt saw his PMD 2 weeks ago and was found to have blood in his urine. He was sent home with ibuprofen, which he has been taking with minimal relief. Pt states that the pain has been persistent and comes and goes in waves. Denies h/o kidney stones. Denies CP/SOB. Denies abdominal pain. - Physicial Exam PE: 09/16/17 13:54 "GENERAL: Awake, alert, and fully oriented, in no acute distress HEAD: No signs of trauma EYES: PERRLA, EOMI, sclera anicteric, conjunctiva clear ENT: Auricles normal inspection, hearing grossly normal, nares patent, oropharynx clear without exudates. Moist mucosa NECK: Nontender, no stepoffs, Normal ROM, supple, no lymphadenopathy, JVD, or masses LUNGS: Breath sounds equal, clear to auscultation bilaterally. No wheezes, and no crackles HEART: Regular rate and rhythm, normal S1 and S2, no murmurs, rubs or gallops ABDOMEN: Soft, nontender, normoactive bowel sounds. No guarding, no rebound. No masses EXTREMITIES: Normal range of motion, no edema. No clubbing or cyanosis. No cords, erythema, or tenderness NEUROLOGICAL: Cranial nerves II through XII intact. 5/5 strength and sensation in all extremities, Normal speech, normal gait SKIN: Warm, Dry, normal turgor, no rashes or lesions noted. " - Medical Decision Making 09/16/17 16:35 52 M with L flank pain x 3 weeks. UA notable for blood. Concerning for obstructing stone. Pt with no infectious symptoms. No abdominal tenderness to suggest GI pathology. - Labs, UA, UCx - CTAP non-con - Pain control, IVF 09/16/17 16:59 CBC,CMP WBC 4.8 K/mm3 (4.0-10.0) D 09/16/17 13:35 RBC 5.05 M/mm3 (4.00-5.60) 09/16/17 13:35 Hgb 16.6 GM/dL (11.7-16.9) 09/16/17 13:35 Hct 48.0 % (35.4-49) 09/16/17 13:35 MCV 95.0 fl (80-96) 09/16/17 13:35 MCH 32.9 pg (25.7-33.7) 09/16/17 13:35 MCHC 34.6 g/dl (32.0-35.9) 09/16/17 13:35 RDW 13.2 % (11.9-15.9) 09/16/17 13:35 Plt Count 129 K/MM3 (134-434) L 09/16/17 13:35 MPV 9.0 fl (7.5-11.1) 09/16/17 13:35 Neutrophils % 61.9 % (42.8-82.8) 09/16/17 13:35 Lymphocytes % 21.2 % (8-40) D 09/16/17 13:35 Monocytes % 13.8 % (3.8-10.2) H 09/16/17 13:35 Eosinophils % 2.7 % (0-4.5) D 09/16/17 13:35 Basophils % 0.4 % (0-2.0) 09/16/17 13:35 Sodium 141 mmol/L (136-145) 09/16/17 13:35 Potassium 4.1 mmol/L (3.5-5.1) 09/16/17 13:35 Chloride 105 mmol/L (98-107) 09/16/17 13:35 Carbon Dioxide 28 mmol/L (21-32) 09/16/17 13:35 Anion Gap 8 (8-16) 09/16/17 13:35 BUN 15 mg/dL (7-18) 09/16/17 13:35 Creatinine 0.9 mg/dL (0.7-1.3) 09/16/17 13:35 Creat Clearance w eGFR > 60 (>60) 09/16/17 13:35 Random Glucose 237 mg/dL (74-106) H 09/16/17 13:35 Calcium 9.2 mg/dL (8.5-10.1) 09/16/17 13:35 Total Bilirubin 1.2 mg/dL (0.2-1.0) H D 09/16/17 13:35 AST 85 U/L (15-37) H D 09/16/17 13:35 ALT 81 U/L (12-78) H 09/16/17 13:35 Alkaline Phosphatase 198 U/L (45-117) H D 09/16/17 13:35 Total Protein 8.2 g/dl (6.4-8.2) 09/16/17 13:35 Albumin 3.5 g/dl (3.4-5.0) 09/16/17 13:35 UA notable for blood. CT shows bilateral kidney stones. Pt reassessed - now reporting that his pain feels like it is in the skin, rather than inside his abdomen. Repeat exam shows no rash but hyperesthesis of skin in L T9 or T10 dermatome. Possible early shingles rash. Will cover with valacyclovir. Pt is well appearing with normal vitals. Clinically stable for DC. I discussed the physical exam findings, ancillary test results and final diagnoses with the patients family. I answered all of their questions. The family was satisfied with the care received and felt comfortable with the discharge plan and treatment plan. They agree to follow up with the primary care physician within 24-72 hours.
[2017-09-16] MEDS ORDERED: ACETAMINOPHEN INJECTION 100 ML IVPB ONE (13:59)
[2017-09-16 14:10] LABS: ALBUMIN 3.5 g/dl (3.4-5.0); ALK PHOS 198 U/L (45-117); ANION GAP 8 (8-16); BILIRUBIN,TOTAL 1.2 mg/dL (0.2-1.0); BLOOD UREA NITROGEN 15 mg/dL (7-18); CALCIUM 9.2 mg/dL (8.5-10.1); CHLORIDE 105 mmol/L (98-107); CO2 28 mmol/L (21-32); CREATININE 0.9 mg/dL (0.7-1.3); GLUCOSE,RANDOM 237 mg/dL (74-106); SGPT/ALT 81 U/L (12-78); SODIUM 141 mmol/L (136-145); TOT PROT 8.2 g/dl (6.4-8.2)
[2017-09-16 14:12] LABS: POTASSIUM 4.1 mmol/L (3.5-5.1)
[2017-09-16 14:13] LABS: SGOT/AST 85 U/L (15-37)
[2017-09-16] MEDS ORDERED: KETOROLAC TROMETHAMINE 30 MG/1 ML VIAL IVPUSH ONE (16:37)
[2017-09-16] MEDS ORDERED: KETOROLAC TROMETHAMINE 30 MG/1 ML VIAL ONE (17:04)
[2017-09-16 17:17] VITALS: BP 132/88; PULSE 71
== END 2017-09-16 17:17 | disposition home or self-care (01) ==
LOC: JER 11:59
PROC: 3E0333Z Introduction of Anti-inflammatory into Peripheral Vein, Percutaneous Approach (ICD-10-PCS; principal; 2017-09-16)
PROC: 3E033NZ Introduction of Analgesics, Hypnotics, Sedatives into Peripheral Vein, Percutaneous Approach (ICD-10-PCS; 2017-09-16)
DX: B02.8 Zoster with other complications (principal); N20.0 Calculus of kidney; I10 Essential (primary) hypertension; E11.9 Type 2 diabetes mellitus without complications; Z79.84 Long term (current) use of oral hypoglycemic drugs
CPT/HCPCS: 36415; 74176; 80053; 81003; 81015; 85025; 87086; 99282-25

== ENCOUNTER 2017-10-14 12:16 | Day surgery (SDC) | payer OTHER ==
[2017-10-14] MEDS ORDERED: oxyCODONE HCL 5 MG TABLET PO PRN (13:24)
[2017-10-14] MEDS ORDERED: IBUPROFEN 800 MG/8 ML IJ IVPB PRN (13:24)
[2017-10-14] MEDS ORDERED: ONDANSETRON 4 MG/2 ML VIAL IVPUSH PRN (13:24)
[2017-10-14] MEDS ORDERED: LACTATED RINGERS SOLUTION 1,000 ML IV SCH (13:30)
[2017-10-14] MEDS ORDERED: MIDAZOLAM HCL 2 MG/2 ML SINGLE DOSE VIAL ONE (13:31)
--- NOTE | 2017-10-14 14:49 | OP ---
Operative Note - Note: Operative Date: 10/14/17 Pre-Operative Diagnosis: Right Kidney stone Operation: Right ESWL Findings: 5 mm stone Right upper pole Post-Operative Diagnosis: Same as Pre-op Surgeon: Felipe Michael Anesthesia: Fractional Operative Report Dictated: Yes
[2017-10-14 15:28] VITALS: TEMP 97.8
[2017-10-14 17:36] VITALS: BP 146/88; PULSE 78
--- NOTE | 2017-10-16 15:22 | OP ---
DATE OF OPERATION: 10/14/2017 PREOPERATIVE DIAGNOSIS: Right renal stone. POSTOPERATIVE DIAGNOSIS: Right renal stone. PROCEDURE: Right extracorporeal shock wave lithotripsy. ATTENDING: Sarita Spicer MD ANESTHESIA: Fractional. OPERATION: The patient was brought in the operating room, placed in supine position on the operating room table. Ultrasonography and fluoroscopy were then performed. A 5-mm right upper pole stone was identified. Fractional anesthesia and preoperative antibiotics were then administered. Then, 2500 impulses at 18 joules of power of the extracorporeal shock wave lithotripsy were administered to the right upper pole stone. Excellent fragmentation was noted under real time ultrasonography and fluoroscopy. No complications were noted. The disposition of the patient was to the recovery room. SARITA SPICER M.D. [id number]
== END 2017-10-14 15:45 | disposition home or self-care (01) ==
LOC: JASU-SURG 12:16
PROVIDERS: ATTEND Urology
PROC: 0TF3XZZ Fragmentation in Right Kidney Pelvis, External Approach (ICD-10-PCS; principal; 2017-10-14 14:00)
DX: N20.0 Calculus of kidney (principal)
CPT/HCPCS: 82962

== ENCOUNTER 2017-11-11 09:28 | Day surgery (SDC) | payer OTHER ==
[2017-11-11] MEDS ORDERED: PROMETHAZINE HCL 25 MG/1 ML VIAL IVPB PRN (12:02)
[2017-11-11] MEDS ORDERED: ONDANSETRON 4 MG/2 ML VIAL IVPUSH PRN (12:02)
[2017-11-11] MEDS ORDERED: oxyCODONE HCL 5 MG TABLET PO PRN (12:02)
[2017-11-11] MEDS ORDERED: MIDAZOLAM HCL 2 MG/2 ML SINGLE DOSE VIAL ONE ×2 (12:08)
[2017-11-11] MEDS ORDERED: LACTATED RINGERS SOLUTION 1,000 ML IV SCH (12:15)
[2017-11-11] MEDS ORDERED: DEXAMETHASONE SOD PHOSPHATE 4 MG/1 ML VIAL ONE (12:30)
[2017-11-11] MEDS ORDERED: KETOROLAC TROMETHAMINE 30 MG/1 ML VIAL ONE (12:30)
--- NOTE | 2017-11-11 12:43 | OP ---
Operative Note - Note: Operative Date: 11/11/17 Pre-Operative Diagnosis: Left kidney stone Operation: Left ESWL Findings: 5 mm mid pole left kidney stone Surgeon: Felipe Michael Anesthesia: Fractional
[2017-11-11 14:40] VITALS: BP 118/76; PULSE 75; TEMP 98
--- NOTE | 2017-11-11 21:21 | OP ---
DATE OF OPERATION: 11/11/2017 PREOPERATIVE DIAGNOSIS: Left renal stone. POSTOPERATIVE DIAGNOSIS: Left renal stone. PROCEDURE: Left extracorporeal shock wave lithotripsy. ATTENDING: Sarita Spicer MD ANESTHESIA: General. DESCRIPTION OF OPERATION: Patient was brought in the operating room, placed in supine position on the operating room table. Ultrasonography and fluoroscopy were performed. A 5-mm left mid-pole stone was identified. At this point, fractional anesthesia and preoperative antibiotics were administered. Extracorporeal shock wave lithotripsy was then started; 2500 impulses at 20 joules of power were administered to the stone with excellent fragmentation of the stone noted under real-time ultrasonography and fluoroscopy. The patient tolerated the procedure very well. No complications were noted. SARITA SPICER M.D. [id number]
== END 2017-11-11 14:30 | disposition home or self-care (01) ==
LOC: JASU-SURG 09:28
PROVIDERS: ATTEND Urology
PROC: 0TF4XZZ Fragmentation in Left Kidney Pelvis, External Approach (ICD-10-PCS; principal; 2017-11-11 11:45)
DX: N20.0 Calculus of kidney (principal)
CPT/HCPCS: 82962; 94760

== ENCOUNTER 2021-03-13 10:56 | Inpatient (IN) | payer OTHER ==
[2021-03-13 12:18] LABS: BASO % 0.6 % (0-2.0); EOS % 2.6 % (0-4.5); HEMATOCRIT 30.1 % (35.4-49); LYMPH % 14.5 % (8-40); MCH 35.7 pg (25.7-33.7); MCHC 36.5 g/dl (32.0-35.9); MEAN CELL VOLUME 97.8 fl (80-96); MEAN PLT VOLUME 8.5 fl (7.5-11.1); MONO % 11.3 % (3.8-10.2); PLATELET COUNT 95 10^3/uL (134-434); RBC 3.07 M/mm3 (4.00-5.60); RDW 13.8 % (11.9-15.9); WHITE BLOOD COUNT 5.3 K/mm3 (4.0-10.0)
[2021-03-13 12:26] LABS: INR 1.13 (0.83-1.09); PROTHROMBIN TIME (PATIENT) 13.9 SEC (9.7-13.0)
[2021-03-13 12:29] LABS: ACTIVATED PTT 33.7 SECONDS (25.2-36.5)
[2021-03-13 12:39] LABS: CHLORIDE 113 mmol/L (98-107); SODIUM 144 mmol/L (136-145)
[2021-03-13 12:41] LABS: CALCIUM 7.5 mg/dL (8.5-10.1)
[2021-03-13 12:42] LABS: ANION GAP 7 MMOL/L (8-16); BLOOD UREA NITROGEN 29.9 mg/dL (7-18); CO2 24 mmol/L (21-32); GLUCOSE,RANDOM 165 mg/dL (74-106); MAGNESIUM 2.2 mg/dL (1.8-2.4)
[2021-03-13 12:45] LABS: CHOLESTEROL 129 mg/dL (50-200); CREATININE 1.8 mg/dL (0.55-1.3); PHOSPHOROUS 3.2 mg/dL (2.5-4.9); SGOT/AST 49 U/L (15-37); SGPT/ALT 23 U/L (13-61); TRIGLYCERIDES 99 mg/dL (0-150)
[2021-03-13 12:46] LABS: BILIRUBIN,TOTAL 1.3 mg/dL (0.2-1); LDL CHOLESTEROL (ONLY SJRH) 65 mg/dL (5-100); TOT PROT 6.5 g/dl (6.4-8.2)
[2021-03-13 12:48] LABS: ALK PHOS 179 U/L (45-117); HDL CHOLESTEROL 45 mg/dL (40-60)
[2021-03-13] MEDS ORDERED: SODIUM CHLORIDE 0.9% 500 ML INFUS.BAG IV ONE (13:05)
[2021-03-13] MEDS ORDERED: LACTULOSE 20 GM/30 ML UDC (FOR ORAL USE ONLY) PO ONE ×2 (13:06→13:22)
[2021-03-13] MEDS ORDERED: LACTULOSE 20 GM/30 ML UDC (FOR RECTAL USE ONLY) PR STA (13:10)
[2021-03-13] MEDS ORDERED: LACTULOSE 20 GM/30 ML UDC (FOR ORAL USE ONLY) ONE (13:27)
[2021-03-13 20:11] LABS: METHADONE, UR NEGATIVE (NEGATIVE); PHENCYCLIDINE,URINE NEGATIVE (NEGATIVE); URINE BENZODIAZEPINES NEGATIVE (NEGATIVE)
[2021-03-13 20:12] LABS: COCAINE, UR NEGATIVE (NEGATIVE); OPIATES, URI NEGATIVE (NEGATIVE)
[2021-03-13 20:32] LABS: URINE AMPHETAMINES NEGATIVE (NEGATIVE)
[2021-03-13 20:49] LABS: EPI CELLS 8 /uL (0-25.1); HYALINE CASTS 1 /uL (0-3.1); URINE APPEARANCE CLEAR; URINE BACTERIA 17 /uL (0-1359); URINE BILIRUBIN NEGATIVE (NEGATIVE); URINE COLOR DK YELLOW; URINE GLUCOSE (UA) NEGATIVE (NEGATIVE); URINE KETONE NEGATIVE (NEGATIVE); URINE LEUK ESTERASE NEGATIVE (NEGATIVE); URINE NITRITE NEGATIVE (NEGATIVE); URINE PROTEIN 3+ (NEGATIVE); URINE RBC 30 /uL (0-23.9); URINE WBC 10 /uL (0-25.8)
[2021-03-13 20:52] LABS: URINE BARBITURATES NEGATIVE (NEGATIVE)
[2021-03-14 06:46] LABS: BASO % 1.4 % (0-2.0); EOS % 4.8 % (0-4.5); HEMATOCRIT 27.3 % (35.4-49); HEMOGLOBIN 9.9 GM/dL (11.7-16.9); LYMPH % 22.1 % (8-40); MCH 35.4 pg (25.7-33.7); MCHC 36.4 g/dl (32.0-35.9); MEAN CELL VOLUME 97.1 fl (80-96); MEAN PLT VOLUME 8.3 fl (7.5-11.1); MONO % 12.6 % (3.8-10.2); NEUT % 59.1 % (42.8-82.8); PLATELET COUNT 83 10^3/uL (134-434); RBC 2.81 M/mm3 (4.00-5.60); RDW 13.8 % (11.9-15.9); WHITE BLOOD COUNT 3.8 K/mm3 (4.0-10.0)
[2021-03-14] MEDS: INSULIN SLIDING SCALE (NOVOLOG) 1 VIAL SQ SCH ×4 (07:00→21:40)
[2021-03-14] MEDS: HEPARIN NA (PORCINE) 5,000 UNITS/ML 1ML VIAL SQ SCH ×3 (08:59→21:41)
[2021-03-14] MEDS ORDERED: HEPARIN NA (PORCINE) 5,000 UNITS/ML 1ML VIAL ONE ×2 (08:59→14:14)
[2021-03-14] MEDS ORDERED: metoPROLOL SUCCINATE 25 MG TAB.SR.24H (FP) ONE (10:26)
[2021-03-14] MEDS: LOSARTAN POTASSIUM 50 MG TABLET PO SCH (10:26)
[2021-03-14] MEDS: metoPROLOL SUCCINATE 25 MG TAB.SR.24H (FP) PO SCH ×2 (10:26→21:43)
[2021-03-14] MEDS ORDERED: LOSARTAN POTASSIUM 50 MG TABLET ONE (10:26)
[2021-03-14] MEDS ORDERED: LACTULOSE 20 GM/30 ML UDC (FOR ORAL USE ONLY) ONE (14:14)
[2021-03-14] MEDS: LACTULOSE 20 GM/30 ML UDC (FOR ORAL USE ONLY) PO SCH ×2 (14:21→21:43)
[2021-03-14] MEDS ORDERED: ONDANSETRON 4 MG/2 ML VIAL IVPUSH ONE (18:29)
[2021-03-14 18:40] VITALS: BMI 28.3
[2021-03-15] MEDS: HEPARIN NA (PORCINE) 5,000 UNITS/ML 1ML VIAL SQ SCH ×3 (06:19→21:21)
[2021-03-15] MEDS: THIAMINE HCL 200 MG/2 ML VIAL IVPB SCH ×3 (06:19→21:13)
[2021-03-15] MEDS: LACTULOSE 20 GM/30 ML UDC (FOR ORAL USE ONLY) PO SCH ×5 (06:19→21:12)
[2021-03-15] MEDS: INSULIN SLIDING SCALE (NOVOLOG) 1 VIAL SQ SCH ×4 (06:24→21:20)
[2021-03-15 07:36] LABS: BASO % 1.4 % (0-2.0); HEMATOCRIT 28.1 % (35.4-49); HEMOGLOBIN 10.2 GM/dL (11.7-16.9); LYMPH % 22.1 % (8-40); MCH 35.1 pg (25.7-33.7); MCHC 36.2 g/dl (32.0-35.9); MEAN CELL VOLUME 96.9 fl (80-96); MEAN PLT VOLUME 8.5 fl (7.5-11.1); MONO % 12.4 % (3.8-10.2); NEUT % 58.1 % (42.8-82.8); PLATELET COUNT 88 10^3/uL (134-434); RDW 13.6 % (11.9-15.9); WHITE BLOOD COUNT 3.9 K/mm3 (4.0-10.0)
[2021-03-15 07:57] LABS: ALBUMIN 1.8 g/dl (3.4-5.0); BLOOD UREA NITROGEN 24.8 mg/dL (7-18); CALCIUM 7.7 mg/dL (8.5-10.1); MAGNESIUM 1.9 mg/dL (1.8-2.4)
[2021-03-15 08:00] LABS: BILIRUBIN,TOTAL 1.1 mg/dL (0.2-1); CREATININE 1.5 mg/dL (0.55-1.3)
[2021-03-15 08:01] LABS: TOT PROT 6.2 g/dl (6.4-8.2)
[2021-03-15] MEDS: LOSARTAN POTASSIUM 50 MG TABLET PO SCH (09:07)
[2021-03-15] MEDS: metoPROLOL SUCCINATE 25 MG TAB.SR.24H (FP) PO SCH ×2 (09:07→21:12)
[2021-03-15 12:52] LABS: VENOUS BASE EXCESS -3.5 mmol/L (-2-2); VENOUS O2 SATURATION 63.2 % (70-80); VENOUS PCO2 40.4 mmHg (38-52); VENOUS PH 7.35 (7.310-7.410)
[2021-03-15 13:56] LABS: EPI CELLS 5 /uL (0-25.1); HYALINE CASTS 1 /uL (0-3.1); PH,URINE 6.5 (5.0-8.0); URINE APPEARANCE CLEAR; URINE BACTERIA 45 /uL (0-1359); URINE BILIRUBIN NEGATIVE (NEGATIVE); URINE COLOR YELLOW; URINE GLUCOSE (UA) TRACE (NEGATIVE); URINE KETONE NEGATIVE (NEGATIVE); URINE LEUK ESTERASE NEGATIVE (NEGATIVE); URINE NITRITE NEGATIVE (NEGATIVE); URINE PROTEIN 3+ (NEGATIVE); URINE RBC 70 /uL (0-23.9); URINE WBC 14 /uL (0-25.8)
[2021-03-15] MEDS ORDERED: PT OWN MED DRAWER 7, Y5N ONE (21:15)
[2021-03-15] MEDS: RIFAXIMIN 550 MG TABLET (UD) PO SCH (21:16)
[2021-03-15 22:26] LABS: HEPATITIS B SURFACE AG MATERN NON-REACTIVE (NONREACTIVE)
[2021-03-16] MEDS: THIAMINE HCL 200 MG/2 ML VIAL IVPB SCH ×3 (05:29→22:06)
[2021-03-16] MEDS: HEPARIN NA (PORCINE) 5,000 UNITS/ML 1ML VIAL SQ SCH ×4 (05:29→22:05)
[2021-03-16] MEDS: INSULIN SLIDING SCALE (NOVOLOG) 1 VIAL SQ SCH ×4 (06:40→22:05)
[2021-03-16 08:00] LABS: BASO % 0.8 % (0-2.0); EOS % 7.3 % (0-4.5); HEMATOCRIT 28.2 % (35.4-49); HEMOGLOBIN 10.3 GM/dL (11.7-16.9); LYMPH % 23.1 % (8-40); MCH 35.8 pg (25.7-33.7); MCHC 36.6 g/dl (32.0-35.9); MEAN CELL VOLUME 97.7 fl (80-96); MEAN PLT VOLUME 8.9 fl (7.5-11.1); MONO % 10.5 % (3.8-10.2); NEUT % 58.3 % (42.8-82.8); PLATELET COUNT 79 10^3/uL (134-434); RBC 2.89 M/mm3 (4.00-5.60); WHITE BLOOD COUNT 4.8 K/mm3 (4.0-10.0)
[2021-03-16 08:21] LABS: ALBUMIN 1.8 g/dl (3.4-5.0); CALCIUM 7.7 mg/dL (8.5-10.1); MAGNESIUM 1.7 mg/dL (1.8-2.4)
[2021-03-16 08:22] LABS: BLOOD UREA NITROGEN 24.8 mg/dL (7-18)
[2021-03-16 08:24] LABS: CREATININE 1.4 mg/dL (0.55-1.3)
[2021-03-16 08:25] LABS: PHOSPHOROUS 3.8 mg/dL (2.5-4.9)
[2021-03-16 08:26] LABS: BILIRUBIN,TOTAL 1.2 mg/dL (0.2-1); TOT PROT 5.9 g/dl (6.4-8.2)
[2021-03-16] MEDS ORDERED: MAGNESIUM SULF 50% (8.12 MEQ/2 ML-1 GM VIAL) IVPB ONE (10:27)
[2021-03-16] MEDS: metoPROLOL SUCCINATE 25 MG TAB.SR.24H (FP) PO SCH ×2 (10:50→22:05)
[2021-03-16] MEDS: LOSARTAN POTASSIUM 50 MG TABLET PO SCH (10:50)
[2021-03-16] MEDS: LACTULOSE 20 GM/30 ML UDC (FOR ORAL USE ONLY) PO SCH ×4 (10:50→22:05)
[2021-03-16] MEDS: RIFAXIMIN 550 MG TABLET (UD) PO SCH ×2 (10:50→22:06)
[2021-03-16] MEDS ORDERED: PT OWN MED DRAWER 7, Y5N ONE ×2 (16:47→21:46)
[2021-03-17] MEDS: HEPARIN NA (PORCINE) 5,000 UNITS/ML 1ML VIAL SQ SCH ×3 (05:16→21:41)
[2021-03-17] MEDS: THIAMINE HCL 200 MG/2 ML VIAL IVPB SCH ×3 (05:17→21:42)
[2021-03-17] MEDS: INSULIN SLIDING SCALE (NOVOLOG) 1 VIAL SQ SCH ×4 (06:05→21:41)
[2021-03-17 08:01] LABS: HEMATOCRIT 26.9 % (35.4-49); HEMOGLOBIN 9.6 GM/dL (11.7-16.9); MCH 34.7 pg (25.7-33.7); MCHC 35.5 g/dl (32.0-35.9); MEAN CELL VOLUME 97.8 fl (80-96); MEAN PLT VOLUME 8.5 fl (7.5-11.1); PLATELET COUNT 64 10^3/uL (134-434); RBC 2.76 M/mm3 (4.00-5.60); RDW 13.7 % (11.9-15.9); WHITE BLOOD COUNT 4.5 K/mm3 (4.0-10.0)
[2021-03-17 08:20] LABS: CALCIUM 7.2 mg/dL (8.5-10.1)
[2021-03-17 08:21] LABS: ALBUMIN 1.6 g/dl (3.4-5.0); BLOOD UREA NITROGEN 29.2 mg/dL (7-18)
[2021-03-17 08:24] LABS: CREATININE 1.4 mg/dL (0.55-1.3)
[2021-03-17 08:26] LABS: TOT PROT 5.8 g/dl (6.4-8.2)
[2021-03-17] MEDS ORDERED: PT OWN MED DRAWER 7, Y5N ONE ×2 (09:01→21:15)
[2021-03-17] MEDS: metoPROLOL SUCCINATE 25 MG TAB.SR.24H (FP) PO SCH ×2 (09:10→21:42)
[2021-03-17] MEDS: LACTULOSE 20 GM/30 ML UDC (FOR ORAL USE ONLY) PO SCH ×4 (09:10→21:41)
[2021-03-17] MEDS: FUROSEMIDE 40 MG TABLET (FP) PO SCH (09:11)
[2021-03-17] MEDS: SPIRONOLACTONE 25 MG TABLET PO SCH (09:11)
[2021-03-17] MEDS: RIFAXIMIN 550 MG TABLET (UD) PO SCH ×2 (09:31→21:42)
[2021-03-17 12:56] LABS: BF WBC & OTHER NUCLEATED CELLS 358 /mm3
[2021-03-17 15:09] LABS: BODY FLUID MACROPHAGES 45 %; BODY FLUID MESOTHELIAL 16 %; BODY FLUID MONOCYTE 1 %
[2021-03-18] MEDS: THIAMINE HCL 200 MG/2 ML VIAL IVPB SCH (05:54)
[2021-03-18] MEDS: HEPARIN NA (PORCINE) 5,000 UNITS/ML 1ML VIAL SQ SCH (05:56)
[2021-03-18] MEDS: INSULIN SLIDING SCALE (NOVOLOG) 1 VIAL SQ SCH ×2 (06:02→12:09)
[2021-03-18 08:28] LABS: HEMATOCRIT 26.7 % (35.4-49); HEMOGLOBIN 9.7 GM/dL (11.7-16.9); MCHC 36.3 g/dl (32.0-35.9); MEAN CELL VOLUME 96.5 fl (80-96); MEAN PLT VOLUME 9.4 fl (7.5-11.1); PLATELET COUNT 62 10^3/uL (134-434); RBC 2.77 M/mm3 (4.00-5.60); RDW 13.6 % (11.9-15.9); WHITE BLOOD COUNT 5.2 K/mm3 (4.0-10.0)
[2021-03-18 08:52] LABS: CALCIUM 7.4 mg/dL (8.5-10.1)
[2021-03-18 08:53] LABS: ALBUMIN 1.5 g/dl (3.4-5.0); MAGNESIUM 1.7 mg/dL (1.8-2.4)
[2021-03-18 08:56] LABS: CREATININE 1.3 mg/dL (0.55-1.3); PHOSPHOROUS 3.8 mg/dL (2.5-4.9)
[2021-03-18 08:57] LABS: BILIRUBIN,TOTAL 0.8 mg/dL (0.2-1); TOT PROT 5.2 g/dl (6.4-8.2)
[2021-03-18] MEDS ORDERED: MAGNESIUM SULF 50% (8.12 MEQ/2 ML-1 GM VIAL) IVPB ONE (09:22)
[2021-03-18] MEDS ORDERED: PT OWN MED DRAWER 7, Y5N ONE (10:22)
[2021-03-18] MEDS: metoPROLOL SUCCINATE 25 MG TAB.SR.24H (FP) PO SCH (10:32)
[2021-03-18] MEDS: RIFAXIMIN 550 MG TABLET (UD) PO SCH (10:32)
[2021-03-18] MEDS: LACTULOSE 20 GM/30 ML UDC (FOR ORAL USE ONLY) PO SCH (10:32)
[2021-03-18] MEDS: SPIRONOLACTONE 25 MG TABLET PO SCH (10:32)
[2021-03-18] MEDS: FUROSEMIDE 40 MG TABLET (FP) PO SCH (10:32)
[2021-03-18 16:29] VITALS: BP 142/86; PULSE 62; TEMP 98.1
== END 2021-03-18 16:33 | disposition home or self-care (01) | DRG 280 ==
LOC: JER 10:56 → JERBED 17:00 → J4S 03-14 16:18
PROVIDERS: ADMIT Family Medicine; ATTEND Family Medicine
PROC: 0W9G3ZZ Drainage of Peritoneal Cavity, Percutaneous Approach (ICD-10-PCS; principal; 2021-03-17)
DX: K70.30 Alcoholic cirrhosis of liver without ascites (principal); I10 Essential (primary) hypertension; E11.9 Type 2 diabetes mellitus without complications; I87.2 Venous insufficiency (chronic) (peripheral); N17.9 Acute kidney failure, unspecified; R18.8 Other ascites; K72.90 Hepatic failure, unspecified without coma; L30.8 Other specified dermatitis
CPT/HCPCS: 36415; 70450-TC; 71045-TC-FY; 76700-TC; 76942-TC; 80053; 80061; 80307; 81003; 82042; 82105; 82140; 82150; 82465; 82550; 82553; 82570; 82607; 82803; 82945; 82962; 83615; 83735; 83986; 84100; 84156; 84157; 84300; 84443; 84478; 84484; 84540; 85025; 85027; 85610; 85730; 86704; 86705; 86706; 86708; 86709; 86850; 86900; 86901; 87070; 87075; 87086; 87102; 87116; 87205; 87206; 87210; 87340; 87517; 87522; 88108; 88305-TC; 93005; 93010; 93306-TC; 93970-TC; 99285-25; C9803; J1644; U0003; U0005